=== PATIENT | female | born 1970 | race Caucasian/White ===

== ENCOUNTER 2024-09-03 11:11 | Emergency (ER) | payer BC, SELFPAY ==
[2024-09-03 11:13] VITALS: BP 122/85
[2024-09-03 11:59] LABS: % Basophils 0.6 % (0-2); % Eosinophils 1.6 % (0-6); % Immature Granulocytes 0.3 % (0-0.5); % Lymphocytes 32.5 % (20.5-51.1); Absolute Basophils 0.1 10^3/uL (0-0.2); Absolute Eosinophils 0.2 10^3/uL (0-0.7); Absolute Monocytes 0.9 10^3/uL (0.1-0.6); Absolute Neutrophils 5.1 10^3/uL (1.4-6.5); Hematocrit 41.8 % (37.0-47.0); Mean Corp Hgb Conc. 33.5 g/dL (33.0-37.0); Mean Corpuscular Hgb 30.6 pg (27.0-31.0); Mean Corpuscular Volume 91.5 fL (81.0-99.0); Mean Platelet Volume 10.3 fL (7.4-10.4); Nucleated Red Blood Cells % 0 %; Platelet Count 254 10^3/uL (130-400); Red Blood Cell Count 4.57 10^6/uL (4.20-5.40); Red Cell Dist. Width 14.1 % (11.5-14.5); White Blood Cell Count 9.3 10^3/uL (4.8-10.8)
[2024-09-03] MEDS: NSS 1000 IV (12:04)
[2024-09-03] MEDS: OMNIPAQUE 50 ML PO (12:05)
[2024-09-03] MEDS: ZOFRAN 4 MG IV (12:05)
[2024-09-03] MEDS: DILAUDID 0.5 MG IV (12:06)
--- NOTE | 2024-09-03 12:06 | ED.GENMED ---
History of Present Illness
General
Chief Complaint: Abdominal Pain
Source: patient
Exam Limitations: none
Time Seen by Provider: 09/03/24 11:25
Nursing documentation reviewed up to this point in time: agreed with
History of Present Illness
History of Present Illness:
Patient is a 54-year-old female with history DVT/PE on Eliquis, diverticulitis s/p partial colon resection 2012, gastric bypass 2013 who presents to the emergency department for evaluation of abdominal pain x 2 weeks. Patient reports left lower
abdominal pain which radiates into her left back/flank for the past 2 weeks. She describes it is somewhat constant pain which is 8/10 in severity. Patient has had some episodes of nausea and 2 episodes of vomiting last Sunday. She has somewhat
chronic diarrhea after gastric bypass surgery. No bloody stools. Patient denies any known fever although states she has been waking up drenched in sweat over the past few weeks. She also feels as if she is having urinary hesitancy. No hematuria.
Patient suspected that she was having other flare of her diverticulitis and followed up with her primary care provider today. Given that symptoms have been ongoing for the past 2 weeks that she was referred to the emergency urgent CT imaging.
Patient has no past history of kidney stones.
Review of Systems
Review of Systems
Allergies reviewed?: Yes
All Other Systems: ROS reviewed and negative except as documented in HPI and ROS
Phy Exam
Physical Exam
Physical Exam:
Vitals: Patient's vital signs are stable. Afebrile
General: Patient is well appearing, no acute distress. Nontoxic appearing
Skin: Warm and dry, no rashes or lesions
Head: Normocephalic, atraumatic
Eyes: Sclera nonicteric. EOMs intact. No nystagmus.
Throat: Protecting airway
Neck: Normal ROM, no cervical spine tenderness
Cardiac: Regular rate and rhythm, no murmurs.
Pulm: Normal respiratory effort, no wheezes, rales, rhonchi heard on exam.
Abdomen: Abdomen soft. Moderate tenderness in the left lower quadrant without rebound tenderness or guarding. Some reproducible tenderness in left flank. No rash or ecchymoses.
Extremities: No evidence of cyanosis or edema.
Neuro: AAOx3. Grossly intact.
Psychiatric: Normal affect.
Course
Orders/Labs/Results
Orders:
Orders
09/03/24 11:40
Complete Blood Count/With Diff Urgent
Comprehensive Metabolic Panel Urgent
HCG, Serum Qualitative Screen Urgent
Comment: ADD ON
Lipase Urgent
Urinalysis Reflex To Culture Urgent
Date Specimen was Collected: 09/03/24
Time Specimen was Collected: 11:24
Urine Microscopic Reflex Cult Urgent
Urine Culture Urgent
KODY Source: U
Specimen Description:
Obtained by: Random
Date Specimen was Collected: 09/03/24
Time Specimen was Collected: 11:24
09/03/24 11:54
Add On- LAB Urgent
Tests Added?: serum hcg
0.9% Sodium Chloride 1000 ml [Nss] 1,000 ml IV BOLUS
HYDROmorphone [Dilaudid] 0.5 mg IV NOW STA
Iohexol [Omnipaque] See Protocol PO NOW STA
Ondansetron Injectable [Zofran] 4 mg IV NOW STA
09/03/24 11:55
CT Abd/pel W Iv And Oral Contr Urgent
Comment: hx diverticulitis
Reason For Exam: LLQ pain, L flank pain
Abnormal Lab Results
09/03/24
11:40
Absolute Monos (auto) 0.9 H 10^3/uL
(0.1-0.6)
Monocytes % 10.0 H %
(1.7-9.3)
Glucose 102 H mg/dl
(70-99)
Ur Occult Blood Reflex 2+ A
(Negative)
Urine RBC 3-6 A /HPF
(0-2)
Urine Bacteria (Reflex) Many A
(Negative)
Urine Albumin (Reflex) 2+ A
(Neg - Trace)
09/03/24 11:40
09/03/24 11:40
Vital Signs
Initial and Last Documented VS:
Initial Vital Signs
Temp Pulse Resp BP Pulse Ox
98.1 F 82 18 122/85 100
09/03/24 11:13 09/03/24 11:13 09/03/24 11:13 09/03/24 11:13 09/03/24 11:13
Last Documented Vital Signs
Temp Pulse Resp BP Pulse Ox
98.1 F 79 16 148/68 97
09/03/24 11:13 09/03/24 15:18 09/03/24 15:18 09/03/24 15:18 09/03/24 15:18
MDM/Problems Addressed
Differential Diagnosis Includes:
Not limited to: Acute diverticulitis, intra-abdominal abscess, bowel perforation, pyelonephritis, ureterolithiasis, appendicitis, etc.
MDM/Problems Addressed:
54 year-old female with history of documented presenting with 2.5 weeks of left lower quadrant abdominal pain radiating to left mid back. No associated fevers or vomiting. No dysuria or hematuria. Feels similar to prior flares of diverticulitis.
Sent by PCP for CAT scan given duration of symptoms. Vitals and physical exam as above. Will check basic labs, urine, CT scan/pelvis. Will give fluids, Zofran, pain medicine.
Update: labs reviewed. No leukocytosis. Chemistry unremarkable. Urine shows few red blood cells with no evidence infection. CT scan without acute findings. Diverticulosis noted all there no evidence with diverticulitis. Patient remains well and
comfortable appearing. Considered kidney stone although no evidence of obstructing stone on CT scan and symptoms seem less consistent with this diagnosis. No chest pain, shortness of breath to suggest pulmonary etiology. No rash to suggest zoster.
However, given known diverticulosis and pain similar to prior flares � will have patient complete course of antibiotics as prescribed by primary care. Return precautions discussed. Advised clear liquid diet then transition to low fibber. Feel stable
for discharge home with PCP f/u. Advised follow up regarding red blood cells noted in urine today. All questions answered.
Chronic conditions affecting care:
Pulmonary embolism/DVT on Eliquis, history gastric bypass surgery in 2013. History diverticulitis with colon resection 2012
Acute Exacerbation and/or Progression of Chronic Illness:
N/A
*Radiology
Radiology exam reviewed: radiology read reviewed
*Pulse Oximetry
Patient hypoxic: no
*EKG
Interpreted by ED Provider?: NA
*Spinning Operator Interpretation
Rate: Spinning Operator- N/A
*Critical Care Note
Total Time (30-74mins, 75-104mins- exclusive of procedures): Not Applicable
ED Attending Note
-
Portions of this chart may have been created with voice recognition software.� Occasional wrong word or��sound alike� substitutions may have occurred due to the inherent limitations of voice recognition software.
Discharge Plan
Departure
Patient Disposition: Home (Routine Discharge)
Date of Disposition: 09/03/24
Time of Disposition: 15:27
Patient with high blood pressure during this ER visit?: Yes
Condition: Good
Covid-19: Not Applicable
Discharge Problem:
Abdominal pain
Instructions: Clear Liquid Diet, Abdominal Pain, BLOOD PRESSURE
Referrals:
Elder Glover Jr., MD [Active] - As needed
Aj Liriano MD [Family Provider] - Follow up in 5-7 days
Activity Restrictions/Additional Instructions:
RETURN TO THE EMERGENCY DEPARTMENT WITH ANY FEVER, CHILLS, PERSISTENT/WORSENING PAIN, INTRACTABLE NAUSEA/VOMITING, DIFFICULTY URINATING, SEVERE BACK PAIN, WORSENING IN CURRENT SYMPTOMS, OR ANY OTHER CONCERNS
- As discussed�your lab work and CT scan performed in the emergency department showed no acute abnormalities. Your urine did show a few red blood cells. You should have a urinalysis repeated by your primary care and follow-up with urology if
needed.
- You can take antibiotics as prescribed by primary care. Follow clear liquid diet for the next 2 days advance to low fiber as tolerated. It is importantly well-hydrated. Take Tylenol as needed for pain.
- Please follow-up with your primary care provider within the week for further evaluation/management to ensure that symptoms are improving. You may need further testing/imaging if symptoms persist.
Monitor your symptoms closely and return to the emergency department with any acute worsening/new symptoms or any other concerns
Interventions
Interventions:
*Risk Screen - Suicide Last Done: 09/03/24 11:13
*General Assessment Last Done: 09/03/24 11:13
*Neglect/Abuse Screening Last Done: 09/03/24 11:13
*ED COVID-19 Vaccine History Last Done: 09/03/24 11:13
*Nursing Disposition Last Done: 09/03/24 16:04
TU-Fbqidz-Syrvfokels Assessment Last Done: 09/03/24 11:38
Discharge Date and Time
Discharge Date/Time: 09/03/24 16:04
Print Language: [email or web address]
[2024-09-03 12:12] LABS: HCG, Serum Qualitative Screen Negative
[2024-09-03 12:23] LABS: ALT (SGPT) 15 U/L (0-35); AST (SGOT) 22 U/L (14-36); Albumin 3.8 g/dl (3.5-5.0); Alkaline Phosphatase 63 U/L (38-126); Blood Urea Nitrogen 9 mg/dl (7-17); Calcium 9.3 mg/dl (8.4-10.2); Carbon Dioxide 26 mmol/L (22-30); Chloride 106 mmol/L (98-107); Glucose 102 mg/dl (70-99); Lipase 61 U/L (23-300); Potassium 4.1 mmol/L (3.5-5.1); Sodium 137 mmol/L (135-145); Total Bilirubin 0.7 mg/dl (0.2-1.3); Total Protein 6.5 g/dl (6.3-8.2); eGFR > 60.00
[2024-09-03 12:33] LABS: Urine Albumin 2+ (Neg - Trace); Urine Bilirubin Negative (Negative); Urine Character Slightly Cloudy (Clear); Urine Color Yellow; Urine Glucose Negative (Negative); Urine Ketone Negative (Negative); Urine Leukocyte Negative (Negative); Urine Nitrite Negative (Negative); Urine Occult Blood 2+ (Negative); Urine Urobilinogen 1+ (Neg - 1+)
[2024-09-03 12:52] LABS: Urine Squamous Cell >30 /LPF (Few)
[2024-09-03 12:53] LABS: Urine Bacteria Many (Negative); Urine White Cell 0-2 /HPF (0-5)
[2024-09-03 15:18] VITALS: BP 148/68
== END 2024-09-03 16:04 | disposition home or self-care (01) ==
LOC: EMR 11:11
PROVIDERS: EMERGENCY PHYSICIAN Emergency Medicine; FAMILY PHYSICIAN Internal Medicine
DX: R10.32 Left lower quadrant pain (principal); Z86.711 Personal history of pulmonary embolism; Z86.718 Personal history of other venous thrombosis and embolism; Z98.84 Bariatric surgery status; Z79.01 Long term (current) use of anticoagulants; Z87.19 Personal history of other diseases of the digestive system
CPT/HCPCS: 96374; 96375; 96361; 99284; 74177; 80053; 81003; 81015; 83690; 84703; 85025; 87086; Q9967